=== PATIENT | male | born 1980 | race American Indian/Alaskan Native ===

== ENCOUNTER 2017-08-17 21:27 | Emergency (ER) | payer SELFPAY ==
--- NOTE | 2017-08-17 23:47 | XRay Report ---
FINAL REPORT PROCEDURE: XR ANKLE 2V RT TECHNIQUE: RIGHT ankle radiographs, AP, lateral, and oblique views. CPT 02336 HISTORY: ankle pain COMPARISON: No prior studies are available for comparison. FINDINGS: Fracture (s) and/or Dislocation(s): None. Alignment: Normal. Joint space(s): Normal. Soft tissues: Normal. Bone mineralization: Normal. Foreign bodies: None. Calcaneal spurring: None. IMPRESSION: Normal Examination.
[2017-08-18 01:46] VITALS: BP 123/74
--- NOTE | 2017-08-18 03:32 | Emergency Department Report ---
ED Lower Extremity HPI - General Chief Complaint: Extremity Injury, Lower Stated Complaint: ANKLE INJURY Time Seen by Provider: 08/18/17 03:02 Source: patient, family Mode of arrival: Wheelchair Limitations: No Limitations - History of Present Illness Initial Comments: Patient here via ambulance report that he was running while playing basketball and he jumped and landed on his feet and felt a pop in his right ankle. He is reporting pain to the back of his ankle. He said he looked down and he saw that there was some deformity. EMS placed Ashok wrap and gave patient ice pack and patient is brought to the emergency room. He states that his pain is 10 out of 10 to his ankle posteriorly. Denies any numbness or tingling. He reports pain is radiating up his right leg. Pain is worse with movement and touch better with rest. Patient and was given Motrin for pain prior to hospital visit. He has a history of diabetes asthma, COPD, bronchitis and cardiomegaly. Patient has a primary care physician and he is on medication. MD Complaint: ankle injury (right ankle injury and pain) -: This evening Injury: Ankle: Right (pain and swelling) Type of Injury: other (jump in and landed on his feet and heard a pop in his right ankle) Severity: severe Severity scale (0 -10): 10 Improves With: immobilization, rest Worsens With: weight bearing, movement, palpation Context: running, jumping Associated Symptoms: snap/pop sensation, swelling, unable to bear weight. denies: numbness, tingling Treatments Prior to Arrival: cold therapy, bandage, NSAIDS - Related Data Home Medications Medication Instructions Recorded Confirmed Last Taken ALBUTEROL Inhaler 08/17/17 Unknown Previous Rx's Medication Instructions Recorded Last Taken Type Ibuprofen [Motrin] 600 mg PO Q8H PRN #15 tablet 08/18/17 Unknown Rx Oxycodone HCl/Acetaminophen 1 each PO Q6HR PRN #12 tablet 08/18/17 Unknown Rx [Percocet 7.5/325 mg] Allergies Allergy/AdvReac Type Severity Reaction Status Date / Time No Known Allergies Allergy Unverified 08/17/17 21:31 ED Review of Systems ROS: Stated complaint: ANKLE INJURY Other details as noted in HPI Comment: All other systems reviewed and negative Constitutional: no symptoms reported Respiratory: no symptoms reported Cardiovascular: denies: chest pain, palpitations, dyspnea on exertion, edema, syncope, paroxysmal nocturnal dyspnea Gastrointestinal: denies: abdominal pain, nausea, vomiting Genitourinary: denies: dysuria, hematuria Musculoskeletal: joint swelling, arthralgia. denies: back pain, myalgia Skin: denies: rash Neurological: weakness, abnormal gait. denies: headache, numbness, paresthesias , confusion, vertigo ED Past Medical Hx - Past Medical History Previous Medical History?: Yes Hx Diabetes: Yes (on medication) Hx Asthma: Yes Hx COPD: Yes Additional medical history: Bronchitis and enlarged heart - Surgical History Past Surgical History?: No - Family History Family history: diabetes, hypertension - Social History Smoking Status: Never Smoker Substance Use Type: None - Medications Home Medications: Home Medications Medication Instructions Recorded Confirmed Last Taken Type ALBUTEROL Inhaler 08/17/17 Unknown History Ibuprofen [Motrin] 600 mg PO Q8H PRN #15 tablet 08/18/17 Unknown Rx Oxycodone HCl/Acetaminophen 1 each PO Q6HR PRN #12 tablet 08/18/17 Unknown Rx [Percocet 7.5/325 mg] ED Physical Exam - General Limitations: No Limitations General appearance: alert, in no apparent distress - Head Head exam: Present: atraumatic, normocephalic, normal inspection, other (normal exam) - Eye Eye exam: Present: normal appearance, PERRL, EOMI. Absent: periorbital swelling , periorbital tenderness Pupils: Present: normal accommodation - ENT ENT exam: Present: normal exam, normal orophraynx, mucous membranes moist - Neck Neck exam: Present: normal inspection, full ROM, other (no C-spine tenderness). Absent: tenderness, meningismus, lymphadenopathy - Respiratory Respiratory exam: Absent: normal lung sounds bilaterally, respiratory distress, chest wall tenderness - Cardiovascular Cardiovascular Exam: Present: regular rate, normal rhythm, normal heart sounds - GI/Abdominal GI/Abdominal exam: Present: soft, rigid, normal bowel sounds. Absent: distended , tenderness, guarding, rebound, organomegaly, mass, bruit, pulsatile mass, hernia - Extremities Exam Extremities exam: Present: normal inspection, tenderness (posteriorly distal leg at Achilles tendon), normal capillary refill, joint swelling (right ankle), other (no clubbing, cyanosis or edema. She does have swelling to right ankle. Tenderness to palpate to posterior ankle at Achilles tendon area. +2 pulses to all extremities. No neurovascular compromise. He has normal strength in all extremities except for right lower extremity at ankle.). Absent: full ROM ( significant decrease range of motion to right lower extremity), pedal edema, calf tenderness - Expanded Lower Extremity Exam Left Hip exam: Present: normal inspection, full ROM, pelvic stability. Absent: tenderness, swelling, abrasion, laceration, ecchymosis, deformity, crepidus, dislocation, erythema, external rotation, internal rotation, shortening Upper Leg exam: Present: normal inspection, full ROM. Absent: tenderness, swelling, abrasion, laceration, ecchymosis, deformity, crepidus, dislocation, erythema Knee exam: Present: normal inspection, full ROM, full knee extension. Absent: tenderness, swelling, abrasion, laceration, ecchymosis, deformity, crepidus, dislocation, erythema, effusion, pain w/ pronation/supination, posterior draw sign, pain/laxity with valgus, pain/laxity with varus Lower Leg exam: Present: tenderness (sistal achiles tendon. Positive Rios test), swelling. Absent: normal inspection, full ROM, abrasion, laceration, ecchymosis, deformity, crepidus, dislocation, erythema, Bradly's sign Ankle exam: Present: tenderness, swelling. Absent: normal inspection, full ROM , abrasion, laceration, ecchymosis, deformity, crepidus, dislocation, erythema Foot/Toe exam: Present: normal inspection. Absent: full ROM, tenderness, swelling, abrasion, laceration, ecchymosis, deformity, crepidus, dislocation, erythema, amputation, puncture wound, foreign body, calcaneal tenderness, tenderness at base of 5th metatarsal, nail avulsion, subungual hematoma Neuro vascular tendon exam: Present: no vascular compromise, motor deficit ( decreased motor function to right ankle), tendon deficit (Achilles tendinopathy secondary to injury. Positive Rios test), significant pain with passive ROM of distal joint. Absent: pulse deficit, abnormal cap refill, sensory deficit, extremity cold to touch, pallor, abnormal 2-point discrimination, decreased fine/light touch, foot drop, peroneal nerve deficit Gait: Positive: antalgic - Back Exam Back exam: Present: normal inspection, full ROM. Absent: tenderness, CVA tenderness (R), CVA tenderness (L), muscle spasm, paraspinal tenderness, vertebral tenderness, rash noted - Neurological Exam Neurological exam: Present: alert, oriented X3, abnormal gait (right lower extremity due to Achilles tendon rupture), motor sensory deficit (decreased motor function to the right ankle otherwise normal to all other extremities. Normal sensory function.). Absent: reflexes normal (decreased right ankle reflex. Otherwise other reflexes are normal to lower extremities) - Psychiatric Psychiatric exam: Present: normal affect, normal mood - Skin Skin exam: Present: warm, dry, intact, normal color. Absent: rash ED Course Vital Signs 08/17/17 08/18/17 08/18/17 21:34 01:45 03:44 Temperature 98.5 F Pulse Rate 90 66 Respiratory 18 18 18 Rate Blood Pressure 129/83 123/74 [Right] O2 Sat by Pulse 96 97 Oximetry - Reevaluation(s) Reevaluation #1: 08/18/17 06:21 Given Percocet 5/325 mg 2 tablets when necessary emergency room for pain to right ankle. - Orthopedic Splinting/Casting Injury #1 Side: right Lower Extremity Injury Location: ankle Lower Extremity Immobilizer: posterior splint Other Orthopedic Equipment: crutches Additional Comments: Patient with positive Rios test and positive abnormality to Achilles tendon on the right. He has good color, sensations, temperature to toes of right foot status post splinting. Pulses are 2+ and bounding. ED Lower Extremity MDM - Radiology Data Radiology results: report reviewed X-ray right ankle reveal no acute abnormalities - Medical Decision Making ED course: She is status post right ankle injury with pain and x-ray reveals no acute abnormalities. Physical findings for abnormality in the right Achilles tendon with positive Rios test. Patient unable to weight-bear right lower extremity. Gait is abnormal due to pain. He has no neurovascular compromise pre-and post posterior ankle splint to the right. Patient was given Percocet 5/ 325 2 tablets by mouth in the emergency room for pain. I discussed Her results and diagnosis of the patient and he voiced understanding. Please refer to procedure note for details and splinting. Patient discharged home with prescription for Percocet and Motrin and to follow up with Dr. Crum in 2 days. I discussed with him he needs to use crutches and and no weightbearing to right lower extremity until seen and evaluated by orthopedic. She does have access to healthcare and he has a primary care doctor. Critical care attestation.: If time is entered above; I have spent that time in minutes in the direct care of this critically ill patient, excluding procedure time. ED Disposition Clinical Impression: Achilles tendonosis, Pain and swelling of left ankle Injury of left ankle Qualifiers: Encounter type: initial encounter Qualified Code(s): S99.912A - Unspecified injury of left ankle, initial encounter Disposition: TO HOME OR SELFCARE Is pt being admited?: No Does the pt Need Aspirin: No Condition: Stable Instructions: Achilles Tendon Rupture (ED), Achilles Tendinitis (ED), Splint Care (ED), Musculoskeletal Pain (ED), Arthralgia (ED), RICE Therapy (ED) Additional Instructions: Please follow up with primary care as recommended Increase fluid intake Take medication as prescribed . please do not drive or operate heavy machinery while taking Percocet as this medication causes drowsiness Referred to discharge instruction on splint care. Referred to discharge instruction in Rice therapy. These follow-up with orthopedic doctor as instructed. Prescriptions: Ibuprofen [Motrin] 600 mg PO Q8H PRN #15 tablet PRN Reason: Pain Oxycodone HCl/Acetaminophen [Percocet 7.5/325 mg] 1 each PO Q6HR PRN #12 tablet PRN Reason: Pain Referrals: [facility] [Outside] - 3-5 Days KEELY CRUM MD [Staff Physician] - 08/20/17 Forms: Work/School Release Form(ED)
[2017-08-18] MEDS ORDERED: PERCOCET 5/325 PO ONE (03:41)
== END 2017-08-18 06:44 | disposition home or self-care (01) ==
LOC: ED 21:27
DX: S99.911A Unspecified injury of right ankle, initial encounter (principal); M76.61 Achilles tendinitis, right leg; E11.9 Type 2 diabetes mellitus without complications; J44.9 Chronic obstructive pulmonary disease, unspecified; W18.30XA Fall on same level, unspecified, initial encounter; Y93.39 Activity, other involving climbing, rappelling and jumping off; Y99.8 Other external cause status; Y92.89 Other specified places as the place of occurrence of the external cause